=== PATIENT | male | born 1955 | race Caucasian/White ===

== ENCOUNTER 2017-10-25 13:37 | Emergency (ER) | payer MEDICARE, MEDICAID ==
[~2017-10-25] VITALS: Ht 175.3 cm; Wt 114.0 kg
[~2017-10-25 13:37] MED LIST: TYLENOL
[2017-10-25] MEDS ORDERED: IBUPROFEN 600MG TABLET PO ONE (16:30)
[2017-10-25 17:30] VITALS: BP 130/72
== END 2017-10-25 18:11 | disposition home or self-care (01) ==
LOC: ER 13:37
DX: S82.491A Other fracture of shaft of right fibula, initial encounter for closed fracture (principal); C90.01 Multiple myeloma in remission; Z98.1 Arthrodesis status; Z87.891 Personal history of nicotine dependence; W10.8XXA Fall (on) (from) other stairs and steps, initial encounter; Y93.89 Activity, other specified; Y92.018 Other place in single-family (private) house as the place of occurrence of the external cause
CPT/HCPCS: 29515; 73610; 73630; 99284